=== PATIENT | male | born 1980 | race African-American/Black ===

== ENCOUNTER 2022-05-17 19:15 | Emergency (ER) | payer MEDICAID ==
[~2022-05-17] VITALS: Ht 165.1 cm; Wt 89.0 kg
[2022-05-17 20:24] VITALS: BP 137/87
[2022-05-17] MEDS ORDERED: ASPIRIN 81MG TABLET PO ONE (22:45)
[2022-05-17] MEDS ORDERED: NITROGLYCERIN 0.4MG TABLET SL SL PRN (22:45)
== END 2022-05-17 22:58 | disposition left against medical advice (07) ==
LOC: ER 19:15
DX: Z53.21 Procedure and treatment not carried out due to patient leaving prior to being seen by health care provider (principal)
CPT/HCPCS: 93005

== ENCOUNTER 2025-03-23 11:48 | Emergency (ER) | payer MEDICAID ==
[~2025-03-23] VITALS: Ht 167.6 cm; Wt 78.0 kg
[2025-03-23 11:53] VITALS: O2SAT 100
[2025-03-23 11:54] VITALS: BP 133/91; PULSE 109; RESP 16; TEMP 36.6; O2SAT 97
[2025-03-23] MEDS ORDERED: IBUP-2030 MT (14:52)
== END 2025-03-23 15:00 | disposition home or self-care (01) ==
LOC: ER 11:48
DX: S02.609A Fracture of mandible, unspecified, initial encounter for closed fracture (principal); X58.XXXA Exposure to other specified factors, initial encounter; Y93.89 Activity, other specified; Y92.89 Other specified places as the place of occurrence of the external cause; Y99.8 Other external cause status
CPT/HCPCS: 70486; 99284